=== PATIENT | male | born 1970 | race Caucasian/White ===

== ENCOUNTER 2018-05-06 02:39 | Emergency (ER) | payer OTHER ==
[~2018-05-06] VITALS: Ht 177.8 cm; Wt 71.2 kg
--- NOTE | 2018-05-06 02:44 | ED GENERAL ADULT ---
History of Present Illness General Chief Complaint: Abdominal Pain/Flank Pain Stated Complaint: L ABD PAIN Source: patient Exam Limitations: no limitations Vital Signs & Intake/Output Vital Signs & Intake/Output Vital Signs Date Time Temp Pulse Resp B/P B/P Pulse O2 O2 Flow FiO2 Mean Ox Delivery Rate 05/06 0248 Room Air 05/06 0244 98.7 91 20 151/106 95 Room Air Room Air Allergies Coded Allergies: NO KNOWN ALLERGIES (03/24/15) Reconcile Medications No Known Home Medications Triage Note: 47YO MALE TO TRIAGE W/CO LLQ PAIN THAT CAME ON SUDDENLY 1 HR AGO. Triage Nurses Notes Reviewed? yes Onset: Abrupt Duration: hour(s): Timing: single episode today HPI: 47-year-old man seen for evaluation of left flank pain and left testicular pain. Patient reports he was in his normal state of health today up until several hours ago when he developed moderate/severe left-sided flank pain radiating to his scrotum. He reports feeling ill over the past several months and has seen his physician often whom thought "he had an infection somewhere". Presently patient complains of persistence of his pain and otherwise denies any fever or chills. He does report associated nausea without vomiting. Past History Travel History Traveled to [place] past 21 day No Medical History Any Pertinent Medical History? see below for history Neurological: NONE EENT: NONE Cardiovascular: NONE Respiratory: NONE Gastrointestinal: NONE Hepatic: NONE Renal: NONE Musculoskeletal: NONE Psychiatric: alcohol dependence Endocrine: NONE Blood Disorders: NONE Cancer(s): NONE WAX MOLDER/Reproductive: NONE Surgical History Surgical History: esophageal atresia repair Psychosocial History Who do you live with Patient/Self What is your primary language [place] Family History Hx Contributory? No Review of Systems Review of Systems Constitutional: Denies: chills, fever. EENTM: Reports: no symptoms. Respiratory: Reports: no symptoms. Cardiovascular: Reports: no symptoms. GI: Reports: no symptoms. Genitourinary: Reports: pain. Musculoskeletal: Reports: back pain. Skin: Reports: no symptoms. Neurological/Psychological: Reports: no symptoms. Hematologic/Endocrine: Reports: no symptoms. Immunologic/Allergic: Reports: no symptoms. Physical Exam Physical Exam General Appearance: well developed/nourished, no apparent distress, alert, awake , moderate distress Head: atraumatic, normal appearance Eyes: Bilateral: normal appearance, PERRL, EOMI. Ears, Nose, Throat: normal pharynx, normal ENT inspection Neck: normal inspection, supple, full range of motion Respiratory: normal breath sounds, no respiratory distress Cardiovascular: regular rate/rhythm Peripheral Pulses: 4+ radial (R), 4+ radial (L) Gastrointestinal: soft, non-tender Back: CVA tenderness (L) Extremities: normal inspection, normal range of motion, no edema Neurologic/Psych: no motor/sensory deficits, awake, alert, oriented x 3 Skin: intact, normal color, warm/dry Comments: Genitourinary examination reveals a normal appearing penis with a normal- appearing scrotum without testicular tenderness, Core Measures ACS in differential dx? No CVA/TIA Diagnosis: No Sepsis Present: No Sepsis Focused Exam Completed? No Progress Differential Diagnoses I considered the following diagnoses in my evaluation of the patient: Nephrolithiasis, urinary tract infection, pyelonephritis, sepsis, epididymitis, testicular torsion Plan of Care: Orders Procedure Date/time Status CULTURE,URINE 05/06 258 Active URINALYSIS 05/06 258 Complete COMPREHENSIVE METABOLIC PANEL 05/06 258 Complete CBC WITHOUT DIFFERENTIAL 05/06 258 Complete Current Medications Sig/Shreya Start time Last Medication Dose Stop Time Status Admin Sodium Chloride 1,000 ML ONCE ONE 05/06 0415 AC 05/06 (Normal Saline 0.9%) 05/06 1414 0423 Laboratory Tests 05/06/18 0305: Anion Gap 16, Estimated GFR > 60, BUN/Creatinine Ratio 17.3, Glucose 134 H, Calcium 9.0, Total Bilirubin 0.6, AST 42, ALT 56, Alkaline Phosphatase 76, Total Protein 7.0, Albumin 4.3, Globulin 2.7, Albumin/Globulin Ratio 1.6, CBC w Diff NO MAN DIFF REQ, RBC 4.79, MCV 93.4, MCH 32.0 H, MCHC 34.2, RDW 13.1, MPV 7.8, Gran % 57.6, Lymphocytes % 33.9, Monocytes % 4.9, Eosinophils % 3.2, Basophils % 0.4, Absolute Granulocytes 4.4, Absolute Lymphocytes 2.6, Absolute Monocytes 0.4 , Absolute Eosinophils 0.2, Absolute Basophils 0 05/06/18 0259: Urinalysis LIGHT H, Urine Color STRAW, Urine Clarity CLEAR, Urine pH 6.0, Ur Specific [place] 1.020, Urine Protein 30 H, Urine Ketones NEG, Urine Nitrite NEG, Urine Bilirubin NEG, Urine Urobilinogen 0.2, Ur Leukocyte Esterase NEG, Ur Microscopic SEDIMENT EXAMINED, Urine RBC 1-3, Urine Mucus RARE, Urine Hemoglobin TRACE-INTACT H, Urine Glucose NEG Microbiology 05/06 259 URINE ROUT: Urine Culture - RECD Initial ED EKG: none Departure Departure Disposition: STILL A PATIENT Condition: Stable Clinical Impression Primary Impression: Ureterolithiasis Referrals: Patient Has No Primary Care Dr (PCP/Family) Departure Forms: Customer Survey General Discharge Information Prescriptions: Current Visit Scripts No Known Home Medications Comments PATIENT: SRINIVAS HUDSON JR PRESENT AGE: 47 PATIENT ACCOUNT NO: [id number] : 71 LOCATION: [facility] ORDERING PHYSICIAN: Morgan Sandoval DO SERVICE DATE: 05/06/18 EXAM TYPE: CAT - CT ABD & PELVIS W/O IV CONTRAS EXAMINATION: CT ABDOMEN AND PELVIS WITHOUT CONTRAST CLINICAL INFORMATION: Left flank pain COMPARISON: None TECHNIQUE: Multidetector volumetric imaging was performed from the superior aspect of the liver through the pubic symphysis. Sagittal and coronal reformatted images were obtained on the technologist's workstation. DLP: 281 mGy-cm FINDINGS: LUNG BASES: The visualized lung bases are unremarkable. LIVER, GALLBLADDER, AND BILIARY TREE: The liver is normal in size, shape, and attenuation. No focal hepatic lesion or biliary ductal dilatation is present. The gallbladder is unremarkable with no evidence of radiopaque gallstones, gallbladder wall thickening, or obvious pericholecystic inflammatory changes. PANCREAS: Unremarkable. SPLEEN: Unremarkable. ADRENAL GLANDS: Unremarkable. KIDNEYS AND URETERS: There is a 3 mm calculus at the left ureterovesicular junction with mild hydroureteronephrosis and perinephric stranding. There is a 3 mm calculus in the lower right kidney without hydronephrosis. BLADDER: Unremarkable. GASTROINTESTINAL TRACT: The small and large bowel are unremarkable. The appendix is unremarkable. No free fluid or free air is seen. ABDOMINAL WALL: No significant hernia is appreciated. LYMPH NODES: Normal. VASCULAR: Unremarkable. PELVIC VISCERA: Unremarkable. OSSEOUS STRUCTURES: Mild degenerative changes are noted in the spine.. IMPRESSION: 1. Left ureterovesicular junction calculus measuring 3 mm with mild hydroureteronephrosis. 2. Right renal calculus measuring 3 mm without hydronephrosis. DICTATED BY: Ghassan Garcia MD DATE/TIME DICTATED:05/06/18350 CHEMISTRY FACULTY MEMBER:FRANKLIN DATE/TIME TRANSCRIBED:05/06/18350 CONFIDENTIAL, DO NOT COPY WITHOUT APPROPRIATE AUTHORIZATION. <Electronically signed in Other Vendor System> SIGNED BY: Ghassan Garcia MD 05/06/18 0403 4:30 am The patient's pain is well-controlled after morphine and Toradol. His CT scan findings were reviewed with him. The stone is only 3 mm. It is at the distal ureterovesicular junction. No pyuria. No fever. He will be treated with Flomax, Percocet and Zofran. Strain urine follow-up with urologist this week; he will return to the emergency department if fever or worse. Critical Care Note Critical Care Note Critical Care Time: non-applicable
[2018-05-06 03:29] LABS: ABSOLUTE BASOPHIL COUNT 0 /CUMM (0.0-0.2); ABSOLUTE EOSINOPHIL COUNT 0.2 /CUMM (0.0-0.7); ABSOLUTE GRANULOCYTE CT 4.4 /CUMM (1.4-6.5); ABSOLUTE LYMPH COUNT 2.6 /CUMM (1.2-3.4); ABSOLUTE MONOCYTE COUNT 0.4 /CUMM (0.10-0.60); BASOPHIL % 0.4 % (0.0-2.0); EOSINOPHIL % 3.2 % (0-5); GRANULOCYTE % 57.6 % (42.2-75.2); HEMATOCRIT 44.7 % (42-52); MEAN CORPUSCULAR HGB CONC 34.2 G/DL (33.0-37.0); MEAN CORPUSCULAR VOLUME 93.4 FL (80.0-94.0); MEAN PLATELET VOLUME 7.8 FL (7.4-10.4); PLATELET COUNT 248 /CUMM (130-400); RBC DISTRIBUTION WIDTH 13.1 % (11.5-14.5); RED BLOOD CELL CT 4.79 /CUMM (4.70-6.10); WHITE BLOOD CELL COUNT 7.6 /CUMM (4.8-10.8)
--- NOTE | 2018-05-06 04:03 | CT SCAN REPORT ---
EXAMINATION: CT ABDOMEN AND PELVIS WITHOUT CONTRAST CLINICAL INFORMATION: Left flank pain COMPARISON: None TECHNIQUE: Multidetector volumetric imaging was performed from the superior aspect of the liver through the pubic symphysis. Sagittal and coronal reformatted images were obtained on the technologist's workstation. DLP: 281 mGy-cm FINDINGS: LUNG BASES: The visualized lung bases are unremarkable. LIVER, GALLBLADDER, AND BILIARY TREE: The liver is normal in size, shape, and attenuation. No focal hepatic lesion or biliary ductal dilatation is present. The gallbladder is unremarkable with no evidence of radiopaque gallstones, gallbladder wall thickening, or obvious pericholecystic inflammatory changes. PANCREAS: Unremarkable. SPLEEN: Unremarkable. ADRENAL GLANDS: Unremarkable. KIDNEYS AND URETERS: There is a 3 mm calculus at the left ureterovesicular junction with mild hydroureteronephrosis and perinephric stranding. There is a 3 mm calculus in the lower right kidney without hydronephrosis. BLADDER: Unremarkable. GASTROINTESTINAL TRACT: The small and large bowel are unremarkable. The appendix is unremarkable. No free fluid or free air is seen. ABDOMINAL WALL: No significant hernia is appreciated. LYMPH NODES: Normal. VASCULAR: Unremarkable. PELVIC VISCERA: Unremarkable. OSSEOUS STRUCTURES: Mild degenerative changes are noted in the spine.. IMPRESSION: 1. Left ureterovesicular junction calculus measuring 3 mm with mild hydroureteronephrosis. 2. Right renal calculus measuring 3 mm without hydronephrosis.
[2018-05-06 04:34] VITALS: BP 150/100
[2018-05-06] MEDS ORDERED: ZOFRAN4 M2 PO (04:39)
[2018-05-06] MEDS ORDERED: FLOMAX0.4 M1 PO (04:39)
[2018-05-06] MEDS ORDERED: PERCOCET 5-3251 EACH PO (04:39)
== END 2018-05-06 14:48 ==
LOC: ERH 02:39
PROVIDERS: Emergency Medicine
DX: N20.1 Calculus of ureter (principal)
CPT/HCPCS: 74176; 81001; 87086; 96374; 96375; 96376; J1885; J2405